=== PATIENT | male | born 1975 ===

== ENCOUNTER 2019-06-29 13:15 | Inpatient (IN) | payer OTHER ==
[~2019-06-29] VITALS: Ht 170.2 cm; Wt 99.8 kg
[2019-07-06] MEDS ORDERED: OXYC1TAB9 PO (12:46)
[2019-07-06] MEDS ORDERED: HYOSCYAMINE0.125 M1 SL (12:46)
== END 2019-07-06 13:07 | disposition home or self-care (01) | DRG 331 ==
LOC: CIR.AMB 13:15 → ADM 13:15 → EDSTATUS 13:15 → O/R 07-03 06:25 → SURH 07-03 07:00
PROVIDERS: ADMIT Surgery
PROC: 07TB4ZZ Resection of Mesenteric Lymphatic, Percutaneous Endoscopic Approach (ICD-10-PCS; 2019-07-03)
PROC: 4A033R1 Measurement of Arterial Saturation, Peripheral, Percutaneous Approach (ICD-10-PCS; 2019-07-03)
PROC: 4A12X4Z Monitoring of Cardiac Electrical Activity, External Approach (ICD-10-PCS; 2019-07-03)
PROC: 0DTF4ZZ Resection of Right Large Intestine, Percutaneous Endoscopic Approach (ICD-10-PCS; principal; 2019-07-03 07:00)
DX: C18.0 Malignant neoplasm of cecum (principal); R59.0 Localized enlarged lymph nodes; K63.89 Other specified diseases of intestine; G47.33 Obstructive sleep apnea (adult) (pediatric); E66.09 Other obesity due to excess calories; D50.0 Iron deficiency anemia secondary to blood loss (chronic)

== ENCOUNTER 2020-07-08 05:50 | Day surgery (SDC) | payer OTHER ==
[~2020-07-08 05:50] MED LIST: HYOSCYAMINE0.125 M1 SL; OXYC1TAB9 PO
== END 2020-07-08 09:45 | disposition home or self-care (01) ==
LOC: AMB-ENDOS 05:50
PROVIDERS: ATTEND Surgery
DX: K63.5 Polyp of colon (principal)